=== PATIENT | female | born 2005 | race Two or more races ===

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

== ENCOUNTER 2024-02-11 08:49 | Observation (INO) | payer MEDICAID ==
[~2024-02-11] VITALS: Ht 154.9 cm; Wt 97.2 kg
[2024-02-11 08:50] VITALS: BP 147/93; PULSE 99; RESP 18; TEMP 97.9; O2SAT 100
[2024-02-11 09:15] LABS: Urine Bacteria None Seen /hpf (None Seen)
[2024-02-11 09:27] LABS: Urine Blood Negative /uL (Negative); Urine Budding Yeast OCCASIONAL /hpf (None Seen); Urine Clarity Clear (Clear); Urine Color Light-Yellow (Yellow); Urine Protein, UAD Negative (Negative); Urine Urobilinogen Normal (Negative); Urine WBC 2 /hpf (0 - 5)
[2024-02-11 14:21] LABS: Vaginal Bacteria Moderate; Vaginal Clue Cells None Seen; Vaginal Epithelial Cells Few; Vaginal Trichomonas Not Present
[2024-02-11] MEDS ORDERED: MICO4CRE5 VA (14:32)
== END 2024-02-11 14:46 | disposition home or self-care (01) ==
LOC: ER 08:49 → LDRP 09:12 → UNDOADMOB 11:00
PROVIDERS: ADMIT Obstetrics & Gynecology; ATTEND Obstetrics & Gynecology
DX: O46.92 Antepartum hemorrhage, unspecified, second trimester (principal); O23.42 Unspecified infection of urinary tract in pregnancy, second trimester; O98.812 Other maternal infectious and parasitic diseases complicating pregnancy, second trimester; B37.9 Candidiasis, unspecified; O26.892 Other specified pregnancy related conditions, second trimester; R10.2 Pelvic and perineal pain; Z3A.25 25 weeks gestation of pregnancy
CPT/HCPCS: 36415; 59025; 76805; 81001; 81002; 84702; 87210; 94760; 99284; G0378